=== PATIENT | male | born 1950 | race Two or more races ===

== ENCOUNTER 2024-06-30 15:06 | Emergency (ER) | payer OTHER ==
[2024-06-30 15:24] VITALS: RESP 18; BMI 21.7
[2024-06-30] MEDS ORDERED: LIDOCAINE HCL 2% JELLY 6 ML TP ONE (16:13)
[2024-06-30] MEDS: LIDOCAINE HCL 2% JELLY 10 ML CARTRIDGE UR ONE (16:28)
[2024-06-30] MEDS ORDERED: ACETAMINOPHEN INJECTION 100 ML ONE ×2 (16:43→20:09)
[2024-06-30 16:48] LABS: BASO % 0.7 % (0-2.0); EOS % 0.7 % (0-4.5); HEMATOCRIT 34.2 % (35.4-49); HEMOGLOBIN 11.1 GM/dL (11.7-16.9); LYMPH % 17.1 % (8-40); MCH 20.7 pg (25.7-33.7); MCHC 32.5 g/dl (32.0-35.9); MEAN CELL VOLUME 63.8 fl (80-96); MEAN PLT VOLUME 7.4 fl (7.5-11.1); MONO % 8.2 % (3.8-10.2); NEUT % 73.3 % (42.8-82.8); PH,URINE 6.5 (5.0-8.0); PLATELET COUNT 262 10^3/uL (134-434); RBC 5.36 M/mm3 (4.00-5.60); RDW 15.3 % (11.9-15.9); URINE APPEARANCE CLEAR; URINE BILIRUBIN NEGATIVE (NEGATIVE); URINE COLOR YELLOW; URINE GLUCOSE (UA) NEGATIVE (NEGATIVE); URINE KETONE NEGATIVE (NEGATIVE); URINE LEUK ESTERASE NEGATIVE (NEGATIVE); URINE NITRITE NEGATIVE (NEGATIVE); URINE PROTEIN NEGATIVE (NEGATIVE); URINE UROBILINOGEN 0.2 mg/dL (0.2-1.0); WHITE BLOOD COUNT 9.9 K/mm3 (4.0-10.0)
[2024-06-30 16:54] LABS: INR 1.08 (0.83-1.09); PROTHROMBIN TIME (PATIENT) 12.2 SEC (9.7-13.0)
[2024-06-30] MEDS: ACETAMINOPHEN 1000 MG/100 ML BAG IVPB ONE ×2 (16:54→20:16)
[2024-06-30 16:57] LABS: ACTIVATED PTT 27.8 SECONDS (25.2-36.5)
[2024-06-30 17:12] LABS: ANISOCYTOSIS 2+; MACROCYTOSIS 0; OVALOCYTE 1+; TARGET CELLS 2+
[2024-06-30] MEDS ORDERED: morphine SULFATE 4 MG/ML VIAL ONE (17:53)
[2024-06-30 17:55] LABS: POTASSIUM 4.1 mmol/L (3.5-5.1)
[2024-06-30] MEDS: morphine CARPU-JECT 4 MG/1 ML DISP.SYRIN IVPUSH ONE (17:57)
[2024-06-30 17:58] LABS: ALBUMIN 3.7 g/dl (3.4-5.0); BLOOD UREA NITROGEN 18.4 mg/dL (7-18); CALCIUM 9.4 mg/dL (8.5-10.1)
[2024-06-30 18:02] LABS: BILIRUBIN,TOTAL 0.5 mg/dL (0.2-1); CREATININE 0.9 mg/dL (0.55-1.3); TOT PROT 7.4 g/dl (6.4-8.2)
[2024-06-30] MEDS ORDERED: TAMSULOSIN HCL 0.4 MG CAP ONE (20:09)
[2024-06-30] MEDS ORDERED: KETOROLAC TROMETHAMINE 15 MG/ML VIAL ONE (20:09)
[2024-06-30] MEDS: KETOROLAC TROMETHAMINE 15 MG/ML VIAL IVPUSH ONE (20:17)
[2024-06-30] MEDS: TAMSULOSIN HCL 0.4 MG CAP PO ONE (20:25)
[2024-06-30 20:57] VITALS: BP 144/80; PULSE 77; TEMP 98.1
== END 2024-06-30 20:56 | disposition home or self-care (01) ==
LOC: JER 15:06
PROC: 3E033NZ Introduction of Analgesics, Hypnotics, Sedatives into Peripheral Vein, Percutaneous Approach (ICD-10-PCS; principal; 2024-06-30)
PROC: 3E033NZ Introduction of Analgesics, Hypnotics, Sedatives into Peripheral Vein, Percutaneous Approach (ICD-10-PCS; 2024-06-30)
PROC: 3E0333Z Introduction of Anti-inflammatory into Peripheral Vein, Percutaneous Approach (ICD-10-PCS; 2024-06-30)
PROC: 3E033NZ Introduction of Analgesics, Hypnotics, Sedatives into Peripheral Vein, Percutaneous Approach (ICD-10-PCS; 2024-06-30)
DX: R33.9 Retention of urine, unspecified (principal)
CPT/HCPCS: 36415; 71045-TC-FY; 74177-TC; 80053; 81003; 84484; 85025; 85610; 85730; 87086; 93005; 93010; 99285-25; J0131; Q9967

== ENCOUNTER 2024-07-05 04:43 | Day surgery (SDC) | payer OTHER ==
[2024-07-02 09:48] VITALS: BMI 21.7
[2024-07-05] MEDS ORDERED: LIDOCAINE HCL/PF 2% SDV 5ML VIAL ONE (08:12)
[2024-07-05] MEDS ORDERED: MIDAZOLAM HCL 2 MG/2 ML SINGLE DOSE VIAL ONE (08:13)
[2024-07-05] MEDS ORDERED: PROPOFOL 20 ML ONE (08:13)
[2024-07-05] MEDS ORDERED: GENTAMICIN SO4 80 MG/2 ML VIAL ONE (08:49)
[2024-07-05] MEDS ORDERED: ceFAZolin SODIUM 1 GM VIAL ONE (09:36)
[2024-07-05] MEDS ORDERED: KETOROLAC TROMETHAMINE 30 MG/1 ML VIAL ONE (09:36)
[2024-07-05] MEDS ORDERED: DEXAMETHASONE SOD PHOSPHATE 4 MG/1 ML VIAL ONE (09:36)
[2024-07-05] MEDS ORDERED: ONDANSETRON 4 MG/2 ML VIAL ONE (09:36)
[2024-07-05] MEDS: ceFAZolin SODIUM 1 GM VIAL IVPB ONE ×2 (09:42)
[2024-07-05] MEDS: GENTAMICIN SO4 80 MG/2 ML VIAL IVPB ONE ×2 (09:42)
[2024-07-05] MEDS ORDERED: oxyCODONE HCL 5 MG TABLET PO PRN ×2 (09:47)
[2024-07-05] MEDS ORDERED: PROMETHAZINE HCL 25 MG/1 ML VIAL IVPB PRN (09:47)
[2024-07-05] MEDS ORDERED: ONDANSETRON 4 MG/2 ML VIAL IVPUSH PRN (09:47)
[2024-07-05] MEDS ORDERED: ACETAMINOPHEN INJECTION 100 ML ONE (10:46)
[2024-07-05] MEDS: ACETAMINOPHEN 1000 MG/100 ML BAG IVPB ONE (10:49)
[2024-07-05] MEDS: LACTATED RINGERS SOLUTION 1,000 ML IV SCH (10:50)
[2024-07-05 13:15] VITALS: RESP 20; TEMP 97.1
[2024-07-05 13:18] VITALS: BP 132/75; PULSE 67
== END 2024-07-05 13:20 | disposition home or self-care (01) ==
LOC: JASU-SURG 04:43
PROVIDERS: ATTEND Urology
PROC: 0T7D8DZ Dilation of Urethra with Intraluminal Device, Via Natural or Artificial Opening Endoscopic (ICD-10-PCS; principal; 2024-07-05 09:30)
DX: N40.1 Benign prostatic hyperplasia with lower urinary tract symptoms (principal); R33.8 Other retention of urine
CPT/HCPCS: 82962; 94760; J0131; L8699